=== PATIENT | male | born 1935 | race Caucasian/White ===

== ENCOUNTER → 2017-05-27 | Outpatient (CLI) | payer MEDICARE, OTHER ==
[2017-05-27 08:43] LABS: ALBUMIN 3.7 gm/dL (3.5-5.0); TOTAL PROTEIN 7.5 g/dL (6.0-8.4)
== END ==
LOC: LCNC 08:27
PROVIDERS: Internal Medicine Interventional Cardiology
DX: E78.00 Pure hypercholesterolemia, unspecified (principal)